=== PATIENT | female | born 1950 | race Caucasian/White ===

== ENCOUNTER → 2017-07-08 | Outpatient (CLI) | payer OTHER ==
--- NOTE | ~2017-07-08 | EE ---
Unit #: [id number] #: [id number] Patient: LUCIE GARCÍA [id number] [address] [address] [id number] O MR#: [id number] NAME: LUCIE GARCÍA : 1950 SEX: F STUDY DATE/TIME: 07/08/2017 UNIT: CEEG ROOM: STUDY DESCRIPTION: eeg Attending Physician: Grace Asencio M.D. Referring Physician: Grace Asencio M.D. Primary Care Physician: Esme Bright M.D. NEURODIAGNOSTICS REPORT EXAM EEG. REASON FOR STUDY Seizures. TECH Nadine. TECHNICAL INFORMATION Routine EEG performed using the standard international 10/20 system with electrode placement. Photic stimulation was performed. Hyperventilation was also performed. REPORT Throughout the entire study the best background rhythm seen is approximately 11 Hz. This rhythm was seen in both posterior head regions symmetrically and does attenuate to eye opening and closure. Hyperventilation was performed and did not elicit any abnormal buildup. Photic stimulation was performed and did not elicit any epileptiform abnormalities; however, a good photic driving response was seen. There was significant frontal artifact seen throughout the study. There were no electrographic seizures recorded nor were there any independent epileptiform abnormalities seen. There was some drowsiness recorded during the study; however, no sleep was obtained. INTERPRETATION This is a normal awake EEG. A normal EEG does not rule out the possibility of a seizure disorder. Clinical correlation is advised. Dictated by... Suleman Damon II., M.D. GWS/braydon TD: 07/11/2017 11:24 JOB #: [id number] Unit #: [id number] #: [id number] Patient: LUCIE GARCÍA NEURODIAGNOSTICS REPORT Page 1 of 1 X NEURODIAGNOSTICS REPORT
== END | disposition home or self-care (01) ==
LOC: CEEG 07:21
DX: R40.4 Transient alteration of awareness (principal)
CPT/HCPCS: 95816